=== PATIENT | male | born 1985 | race Caucasian/White ===

== ENCOUNTER 2020-09-26 13:45 | Emergency (ER) | payer OTHER ==
[~2020-09-26] VITALS: Ht 185.4 cm; Wt 90.9 kg
--- NOTE | 2020-09-26 14:08 | NUR ---
PT SITTING ON GURNEY CALMLY, NADN/VSS. MONITORS IN PLACE. CALL LIGHT WITHIN REACH. NO NEEDS AT THIS TIME.
--- NOTE | 2020-09-26 14:38 | NUR ---
PT TO RADIOLOGY
--- NOTE | 2020-09-26 14:59 | NUR ---
PT RETURN FROM XRAY
[2020-09-26 16:34] VITALS: BP 131/76
--- NOTE | 2020-09-26 16:50 | NUR ---
Patient given discharge instructions and RX, they have confirmed that they understand the instructions. Patient ambulatory with CRUTCH USE.
== END 2020-09-26 16:51 | disposition home or self-care (01) ==
LOC: ED 15:00
DX: S83.014A Lateral dislocation of right patella, initial encounter (principal); X58.XXXA Exposure to other specified factors, initial encounter; Y93.89 Activity, other specified; Y92.89 Other specified places as the place of occurrence of the external cause; Y99.8 Other external cause status
CPT/HCPCS: 29505; 99283